=== PATIENT | male | born 1995 | race Two or more races ===

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

== ENCOUNTER 2017-02-22 23:14 | Emergency (ER) | payer SELFPAY ==
[2017-02-23] MEDS: AUGMENTIN 875 MG TAB PO (01:24)
== END 2017-02-23 01:26 | disposition home or self-care (01) ==
LOC: M ED 23:14
DX: J02.9 Acute pharyngitis, unspecified (principal); J45.909 Unspecified asthma, uncomplicated; F17.200 Nicotine dependence, unspecified, uncomplicated; Z79.899 Other long term (current) drug therapy
CPT/HCPCS: 71046

== ENCOUNTER 2018-07-09 04:25 | Emergency (ER) | payer SELFPAY ==
[~2018-07-09] VITALS: Ht 180.3 cm; Wt 115.9 kg
[~2018-07-09 04:25] MED LIST changes: +AUGM500T34 PO; +ELIM5CRE2 TOP
[2018-07-09] MEDS ORDERED: IBUP-1114 PO (05:06)
[2018-07-09] MEDS ORDERED: ACETAMINOPHEN TAB 650MG DOSE (2X325MG) PO ONE (05:15)
[2018-07-09] MEDS ORDERED: IBUPROFEN 800 MG TAB PO ONE (05:30)
[2018-07-09 05:55] LABS: INFLUENZA A AMPLIFICATION NEGATIVE (NEGATIVE); INFLUENZA B AMPLIFICATION NEGATIVE (NEGATIVE)
[2018-07-09 06:30] VITALS: BP 116/56
== END 2018-07-09 06:45 | disposition home or self-care (01) ==
LOC: M ED 04:25
DX: J02.9 Acute pharyngitis, unspecified (principal); R50.9 Fever, unspecified; F17.210 Nicotine dependence, cigarettes, uncomplicated; F12.90 Cannabis use, unspecified, uncomplicated

== ENCOUNTER 2018-11-09 13:02 | Emergency (ER) | payer OTHER, SELFPAY ==
[~2018-11-09] VITALS: Ht 180.3 cm; Wt 118.3 kg
[2018-11-09 13:02] VITALS: BP 144/82
[~2018-11-09 13:02] MED LIST changes: +IBUP-1114 PO
[2018-11-09] MEDS ORDERED: KETO10TAB PO (13:21)
[2018-11-09] MEDS ORDERED: AUGM875T28 PO (13:21)
[2018-11-09] MEDS ORDERED: KETOROLAC 60 MG/2 ML VIAL (J1885) IM ONE (13:30)
== END 2018-11-09 13:34 | disposition home or self-care (01) ==
LOC: M ED 13:02
DX: K02.9 Dental caries, unspecified (principal); J45.909 Unspecified asthma, uncomplicated; F17.210 Nicotine dependence, cigarettes, uncomplicated
CPT/HCPCS: 96372; 99283; J1885

== ENCOUNTER 2019-03-31 15:27 | Emergency (ER) | payer OTHER ==
[~2019-03-31] VITALS: Ht 180.3 cm; Wt 121.5 kg
[2019-03-31 15:27] VITALS: BP 140/68
[~2019-03-31 15:27] MED LIST changes: +AUGM875T28 PO; +KETO10TAB PO
[2019-03-31 16:37] LABS: BASO % 0.7 % (0.0-1.0); EOS # 0.2 10^3/uL (0.0-0.5); EOS % 2.5 % (0.0-3.0); HEMATOCRIT 47.4 % (42.0-52.0); HEMOGLOBIN 16.9 g/dl (13.5-17.5); LYMPH # 1.3 10^3/uL (1.5-5.0); LYMPH % 22.2 % (24.0-44.0); MEAN CORPUSCULAR HEMOGLOBIN 30.8 pg (27.0-33.0); MEAN CORPUSCULAR HGB CONC 35.7 g/dl (32.0-36.5); MEAN CORPUSCULAR VOLUME 86.5 fl (80.0-96.0); MONO # 0.5 10^3/uL (0.0-0.8); NEUTROPHILS % 66.3 % (36.0-66.0); PLATELET COUNT, AUTOMATED 195 10^3/uL (150-450); RED BLOOD COUNT 5.48 10^6/uL (4.30-6.10)
[2019-03-31 17:05] LABS: ALBUMIN 4.4 GM/DL (3.2-5.2); ALT/SGPT 26 U/L (12-78); BILIRUBIN,DIRECT 0.2 MG/DL (0.0-0.2); BILIRUBIN,TOTAL 0.8 MG/DL (0.2-1.0); BLOOD UREA NITROGEN 11 MG/DL (7-18); CALCIUM LEVEL 8.8 MG/DL (8.5-10.1); CARBON DIOXIDE LEVEL 29 MEQ/L (21-32); CHLORIDE LEVEL 106 MEQ/L (98-107); GLOMERULAR FILTRATION RATE > 60.0 (>60); GLUCOSE, FASTING 86 MG/DL (70-100); LIPASE 49 U/L (73-393); SODIUM LEVEL 140 MEQ/L (136-145); TOTAL PROTEIN 7.7 GM/DL (6.4-8.2)
== END 2019-03-31 18:05 | disposition left against medical advice (07) ==
LOC: M ED 15:27
DX: Z53.21 Procedure and treatment not carried out due to patient leaving prior to being seen by health care provider (principal)

== ENCOUNTER 2019-08-09 16:45 | Emergency (ER) | payer MEDICAID, OTHER ==
[~2019-08-09] VITALS: Ht 172.7 cm; Wt 120.1 kg
[2019-08-09 16:45] VITALS: BP 136/72
== END 2019-08-09 17:26 | disposition home or self-care (01) ==
LOC: M ED 16:45
DX: R50.9 Fever, unspecified (principal); T67.9XXA Effect of heat and light, unspecified, initial encounter; Y92.9 Unspecified place or not applicable; Y93.89 Activity, other specified; X30.XXXA Exposure to excessive natural heat, initial encounter; Y99.8 Other external cause status

== ENCOUNTER 2019-09-20 12:45 | Emergency (ER) | payer OTHER | END 2019-09-20 13:44 | disposition home or self-care (01) | LOC: M ED 12:45 | DX: Z02.79 Encounter for issue of other medical certificate (principal); J45.909 Unspecified asthma, uncomplicated ==

== ENCOUNTER 2019-12-17 00:18 | Emergency (ER) | payer OTHER ==
[~2019-12-17] VITALS: Ht 180.3 cm; Wt 123.8 kg
[2019-12-17] MEDS ORDERED: NAPR220C14 PO (00:27)
[2019-12-17] MEDS ORDERED: KETOROLAC TROMETHAMINE 10 MG TAB PO ONE (01:15)
[2019-12-17] MEDS ORDERED: CYCLOBENZAPRINE 10MG TABLET PO ONE (01:15)
--- NOTE | 2019-12-17 01:58 | REPVR ---
PROCEDURE INFORMATION: Exam: XR Lumbosacral Spine, 4 or 5 Views Exam date and time: 12/17/2019 1:28 AM Age: 24 years old Clinical indication: Low back pain; Additional info: Injured lifting TECHNIQUE: Imaging protocol: XR of the lumbosacral spine, 4 or 5 views. COMPARISON: No relevant prior studies available. FINDINGS: Bones/joints: There are 5 non-rib bearing lumbar type vertebral bodies. There is no acute fracture or subluxation in the lumbar spine. There is chronic mild anterior wedging of the T10 and T11 vertebral bodies. There is a slight levoscoliosis of the lumbar spine. The disc heights are preserved. The facet joints are unremarkable. No pars defect is noted. Soft tissues: Unremarkable. IMPRESSION: 1. Chronic mild anterior wedge compression deformities of T10 and T11. 2. No acute fracture or subluxation in the lumbar spine. Electronically signed by: Hudson Lee On 12/17/2019 01:58:36 AM
--- NOTE | 2019-12-17 01:58 | REPVR ---
PROCEDURE INFORMATION: Exam: XR Right Hip with Pelvis when Performed Exam date and time: 12/17/2019 1:28 AM Age: 24 years old Clinical indication: Hip pain; Right hip; Additional info: Injured lifting TECHNIQUE: Imaging protocol: XR Right hip with pelvis when performed. Views: 2 or 3 views. COMPARISON: No relevant prior studies available. FINDINGS: Bones/joints: The bony pelvis and right hip are intact. The right hip joint space is preserved. No arthropathy is noted. No bony destructive changes are seen. There is no suspicious osteolytic or osteoblastic lesion. The sacroiliac joints and pubic symphysis are unremarkable. Soft tissues: Unremarkable. IMPRESSION: Normal radiographs of the bony pelvis and right hip. Electronically signed by: Hudson Lee On 12/17/2019 01:58:28 AM
[2019-12-17] MEDS ORDERED: CYCL5TAB PO (02:19)
[2019-12-17 03:00] VITALS: BP 127/78
== END 2019-12-17 03:05 | disposition home or self-care (01) ==
LOC: M ED 00:18
DX: S39.012A Strain of muscle, fascia and tendon of lower back, initial encounter (principal); S22.080A Wedge compression fracture of T11-T12 vertebra, initial encounter for closed fracture; M25.551 Pain in right hip; X50.0XXA Overexertion from strenuous movement or load, initial encounter; Y92.9 Unspecified place or not applicable; Y99.0 Civilian activity done for income or pay; J45.909 Unspecified asthma, uncomplicated; F17.290 Nicotine dependence, other tobacco product, uncomplicated

== ENCOUNTER 2020-06-05 11:42 | Emergency (ER) | payer OTHER ==
[~2020-06-05] VITALS: Ht 182.9 cm; Wt 120.4 kg
[2020-06-05 11:42] VITALS: BP 144/73
[~2020-06-05 11:42] MED LIST changes: +CYCL5TAB PO; +NAPR220C14 PO
== END 2020-06-05 13:47 | disposition home or self-care (01) ==
LOC: M ED 11:42
DX: S76.011A Strain of muscle, fascia and tendon of right hip, initial encounter (principal); X58.XXXA Exposure to other specified factors, initial encounter; Y92.9 Unspecified place or not applicable; Y93.9 Activity, unspecified; Y99.9 Unspecified external cause status

== ENCOUNTER → 2021-03-04 | Outpatient (REF) | LOC: M LABSMTC 09:27 | PROVIDERS: ATTEND Pediatrics | DX: Z20.822 Contact with and (suspected) exposure to COVID-19 (principal) ==

== ENCOUNTER → 2021-04-07 | Outpatient (REF) | LOC: M LABSMTC 09:09 | PROVIDERS: ATTEND Pediatrics | DX: Z20.822 Contact with and (suspected) exposure to COVID-19 (principal) ==

== ENCOUNTER 2021-07-11 20:03 | Emergency (ER) | payer OTHER ==
[~2021-07-11] VITALS: Ht 180.3 cm; Wt 129.2 kg
[2021-07-11 20:05] VITALS: BP 138/77
== END 2021-07-11 23:19 | disposition left against medical advice (07) ==
LOC: M ED 20:03
DX: Z53.21 Procedure and treatment not carried out due to patient leaving prior to being seen by health care provider (principal)

== ENCOUNTER 2021-09-19 10:07 | Emergency (ER) | payer OTHER ==
[~2021-09-19] VITALS: Ht 180.3 cm; Wt 127.8 kg
[2021-09-19 10:08] VITALS: BP 140/72
[2021-09-19] MEDS ORDERED: TRIA1CR80 TOP (11:25)
== END 2021-09-19 12:14 | disposition home or self-care (01) ==
LOC: M ED 10:07
DX: L23.9 Allergic contact dermatitis, unspecified cause (principal); J45.909 Unspecified asthma, uncomplicated; F17.200 Nicotine dependence, unspecified, uncomplicated; Z79.899 Other long term (current) drug therapy

== ENCOUNTER 2021-09-23 19:56 | Emergency (ER) | payer OTHER ==
[~2021-09-23] VITALS: Ht 180.3 cm; Wt 126.7 kg
[~2021-09-23 19:56] MED LIST changes: +TRIA1CR80 TOP
[2021-09-23 19:57] VITALS: BP 144/87
== END 2021-09-23 22:59 | disposition left against medical advice (07) ==
LOC: M ED 19:56
DX: Z53.21 Procedure and treatment not carried out due to patient leaving prior to being seen by health care provider (principal)

== ENCOUNTER 2021-09-25 06:48 | Emergency (ER) | payer OTHER ==
[~2021-09-25] VITALS: Ht 180.3 cm; Wt 125.8 kg
[2021-09-25] MEDS ORDERED: IBUP80TA PO (06:55)
[2021-09-25 07:51] LABS: RSV AMPLIFICATION NEGATIVE (NEGATIVE)
[2021-09-25 08:20] VITALS: BP 135/94
== END 2021-09-25 08:50 | disposition home or self-care (01) ==
LOC: M ED 06:48
DX: U07.1 COVID-19 (principal)

== ENCOUNTER 2021-11-11 09:14 | Emergency (ER) | payer OTHER ==
[~2021-11-11] VITALS: Ht 180.3 cm; Wt 129.0 kg
[2021-11-11 09:14] VITALS: BP 132/72
[~2021-11-11 09:14] MED LIST changes: +IBUP80TA PO
== END 2021-11-11 12:28 | disposition home or self-care (01) ==
LOC: M ED 09:14
DX: S92.342A Displaced fracture of fourth metatarsal bone, left foot, initial encounter for closed fracture (principal); W23.0XXA Caught, crushed, jammed, or pinched between moving objects, initial encounter; F17.200 Nicotine dependence, unspecified, uncomplicated; Y92.009 Unspecified place in unspecified non-institutional (private) residence as the place of occurrence of the external cause; Y93.9 Activity, unspecified; Y99.9 Unspecified external cause status

== ENCOUNTER → 2022-05-08 | Outpatient (CLI) | payer OTHER | LOC: M LABSMTC 11:50 | PROVIDERS: ATTEND Anesthesiology | DX: Z20.822 Contact with and (suspected) exposure to COVID-19 (principal) ==

== ENCOUNTER 2022-05-12 06:03 | Day surgery (SDC) | payer OTHER ==
[~2022-05-12] VITALS: Ht 180.3 cm; Wt 125.1 kg
[~2022-05-12 06:03] MED LIST changes: +AMPICILLIN SOD/SULBACTAM SOD 3 GM in D5W MINI-BAG PLUS 100 ML IV ONE
[2022-05-12] MEDS ORDERED: LR 1,000 ML IV SCH ×2 (06:25→08:35)
[2022-05-12] MEDS: BUPIVACAINE LIPOSOME/PF 1.3% 20ML VIAL (13.3MG/ML)(EXPAREL) As Ordered ONE ×2 (07:14→08:23)
[2022-05-12] MEDS ORDERED: LIDOCAINE 2% W/ EPINEPHRINE 1.7 ML DENTAL INJ As Ordered ONE (07:14)
[2022-05-12] MEDS ORDERED: ROCURONIUM BROMIDE 50MG/5ML VIAL As Ordered ONE (07:20)
[2022-05-12] MEDS ORDERED: ONDANSETRON 4MG 2ML VIAL As Ordered ONE (07:20)
[2022-05-12] MEDS ORDERED: fentaNYL 100 MCG/2 ML INJECTION As Ordered ONE (07:20)
[2022-05-12] MEDS ORDERED: LIDOCAINE 2% 100MG/5ML SDV (FOR ANES.) As Ordered ONE (07:20)
[2022-05-12] MEDS ORDERED: MIDAZOLAM INJ 2MG/2ML VIAL As Ordered ONE (07:20)
[2022-05-12] MEDS ORDERED: propofoL 200 MG/20 ML VIAL As Ordered ONE (07:20)
[2022-05-12] MEDS ORDERED: OXYMETAZOLINE 0.05% NASAL SPRAY (AFRIN) As Ordered ONE (07:28)
[2022-05-12] MEDS ORDERED: ACETAMINOPHEN 1000MG 100ML IV BAG As Ordered ONE (07:52)
[2022-05-12] MEDS ORDERED: CHLORHEXIDINE GLUCONATE 0.12 % 15ML UDC (PERIDEX ORAL RINSE) As Ordered ONE ×2 (07:53→08:00)
[2022-05-12] MEDS ORDERED: HYDROMORPHONE HCL 0.5 MG/ 0.5 ML SYRINGE IV PRN (08:35)
[2022-05-12] MEDS ORDERED: fentaNYL 100 MCG/2 ML INJECTION IV PRN (08:35)
[2022-05-12] MEDS ORDERED: ONDANSETRON 4MG 2ML VIAL IV PRN (08:35)
[2022-05-12] MEDS ORDERED: oxyCODONE 5MG TAB PO PRN (08:35)
[2022-05-12 10:15] VITALS: BP 140/85
== END 2022-05-12 10:15 | disposition home or self-care (01) ==
LOC: M SDC 06:03
PROVIDERS: ATTEND Dentist
DX: K02.9 Dental caries, unspecified (principal); F12.10 Cannabis abuse, uncomplicated; F17.200 Nicotine dependence, unspecified, uncomplicated; J45.909 Unspecified asthma, uncomplicated
CPT/HCPCS: 88300; C9290; D7210; D9223; J0131; J1100; J2250; J2405; J3010

== ENCOUNTER → 2022-09-13 | Outpatient (REF) ==
[~2022-09-13] MED LIST changes: -AMPICILLIN SOD/SULBACTAM SOD 3 GM in D5W MINI-BAG PLUS 100 ML IV ONE
== END ==
LOC: M LAB 11:32
PROVIDERS: ATTEND Nurse Practitioner Adult Health
DX: Z02.89 Encounter for other administrative examinations (principal)

== ENCOUNTER → 2022-11-12 | Outpatient (REF) | payer OTHER ==
[2022-11-12 19:02] LABS: RSV AMPLIFICATION NEGATIVE (NEGATIVE)
== END ==
LOC: M LAB REF 17:28
PROVIDERS: ATTEND Physician Assistant
DX: B34.9 Viral infection, unspecified (principal)

== ENCOUNTER 2022-11-27 09:14 | Emergency (ER) | payer OTHER ==
[~2022-11-27] VITALS: Ht 180.3 cm; Wt 121.6 kg
[2022-11-27 11:32] VITALS: BP 142/81; TEMP 98.8; O2SAT 99
== END 2022-11-27 11:44 | disposition home or self-care (01) ==
LOC: M ED 09:14
DX: B34.8 Other viral infections of unspecified site (principal); J45.909 Unspecified asthma, uncomplicated; F17.200 Nicotine dependence, unspecified, uncomplicated; F10.10 Alcohol abuse, uncomplicated

== ENCOUNTER 2023-01-05 08:52 | Emergency (ER) | payer OTHER ==
[~2023-01-05] VITALS: Ht 180.3 cm; Wt 123.6 kg
[2023-01-05] MEDS ORDERED: AZIT-12 (09:03)
[2023-01-05 09:51] LABS: RSV AMPLIFICATION NEGATIVE (NEGATIVE)
[2023-01-05] MEDS: IPRATROPIUM 0.5MG/ALBUTEROL 2.5MG INH SOL UD 3ML (DUONEB) NEB PRN ×2 (11:31→12:04)
[2023-01-05] MEDS ORDERED: BENZ200C70 PO (12:05)
[2023-01-05] MEDS ORDERED: MEDR4PAK PO (12:05)
[2023-01-05] MEDS ORDERED: ALBU8.5H INH (12:05)
[2023-01-05 12:51] VITALS: BP 127/78; TEMP 99; O2SAT 99
== END 2023-01-05 12:57 | disposition home or self-care (01) ==
LOC: M ED 10:50
DX: J40 Bronchitis, not specified as acute or chronic (principal); Z79.899 Other long term (current) drug therapy; F17.290 Nicotine dependence, other tobacco product, uncomplicated

== ENCOUNTER 2023-02-01 12:20 | Emergency (ER) | payer OTHER ==
[~2023-02-01] VITALS: Ht 175.3 cm; Wt 126.1 kg
[~2023-02-01 12:20] MED LIST changes: +ALBU8.5H INH; +AZIT-12; +BENZ200C70 PO; +MEDR4PAK PO
[2023-02-01] MEDS ORDERED: TRIA1PST TOP (15:31)
[2023-02-01 15:40] VITALS: BP 124/79; TEMP 98.1; O2SAT 100
== END 2023-02-01 15:51 | disposition home or self-care (01) ==
LOC: M ED 12:20
DX: K12.0 Recurrent oral aphthae (principal); F12.10 Cannabis abuse, uncomplicated; F17.200 Nicotine dependence, unspecified, uncomplicated; J45.909 Unspecified asthma, uncomplicated; F10.10 Alcohol abuse, uncomplicated; Z79.52 Long term (current) use of systemic steroids

== ENCOUNTER 2024-03-12 07:06 | Emergency (ER) | payer MEDICAID, OTHER ==
[~2024-03-12] VITALS: Ht 180.3 cm; Wt 145.3 kg
[~2024-03-12 07:06] MED LIST changes: -CYCL5TAB PO; +CYCL5TAB4 PO; +TRIA1PST TOP
[2024-03-12 07:09] VITALS: BP 123/72; TEMP 98.6; O2SAT 99
[2024-03-12] MEDS ORDERED: PRED20TA PO (09:29)
== END 2024-03-12 09:54 | disposition home or self-care (01) ==
LOC: M ED 07:06
DX: J06.9 Acute upper respiratory infection, unspecified (principal); J45.909 Unspecified asthma, uncomplicated; Z79.52 Long term (current) use of systemic steroids; Z79.899 Other long term (current) drug therapy

== ENCOUNTER 2024-11-12 11:41 | Emergency (ER) | payer MEDICAID, OTHER ==
[~2024-11-12] VITALS: Ht 180.3 cm; Wt 141.4 kg
[~2024-11-12 11:41] MED LIST changes: -ELIM5CRE2 TOP; +PERM60CR8 TOP
[2024-11-12] MEDS ORDERED: ACET1TAB55 PO (12:04)
[2024-11-12 15:00] VITALS: BP 137/82; TEMP 97.2; O2SAT 100
== END 2024-11-12 15:57 | disposition home or self-care (01) ==
LOC: M ED 11:41
DX: S63.502A Unspecified sprain of left wrist, initial encounter (principal); W01.198A Fall on same level from slipping, tripping and stumbling with subsequent striking against other object, initial encounter; J45.909 Unspecified asthma, uncomplicated; Z79.1 Long term (current) use of non-steroidal anti-inflammatories (NSAID); Y92.89 Other specified places as the place of occurrence of the external cause; Y93.89 Activity, other specified; Y99.9 Unspecified external cause status